=== PATIENT | female | born 1930 | race Caucasian/White ===

== ENCOUNTER 2017-12-11 17:09 | Observation (INO) | payer OTHER ==
[2017-12-11] MEDS ORDERED: ACETAMINOPHEN 325 MG TABLET PO PRN (18:05)
[2017-12-11] MEDS ORDERED: DIPHENHYDRAMINE 25 MG TAB/CAP PO PRN (18:05)
[2017-12-11] MEDS ORDERED: ALBUTEROL 2.5 MG/3 ML NEB SOL IH PRN (18:08)
[2017-12-11 18:20] LABS: Absolute Lymphocytes (CBC) 1.1 K/uL (0.7-4.9); Absolute Monocytes 0.6 K/uL (0.1-1.3); Absolute Neutrophil 6.2 K/uL (1.8-8.0); Basophils % 0.5 % (0-1.3); Eosinophils % 0.3 % (0-4.4); Hematocrit 50.3 % (36.0-45.0); Lymphocytes % 14.1 % (15.3-44.8); MCH 32.1 pg (27.0-35.0); MCV 98.9 fL (80-100); Monocytes % 7.6 % (3.3-12.3); RBC Red Blood Cell Count 5.09 M/uL (3.86-4.86)
[2017-12-11 18:24] LABS: Urine Appearance CLEAR; Urine Bilirubin NEGATIVE (NEG); Urine Blood NEGATIVE (NEG); Urine Color YELLOW; Urine Glucose NEGATIVE (NEG); Urine Protein 1+ (NEG); Urine Specific Gravity 1.015 (1.005-1.030); Urine Urobilinogen 0.2 mg/dL (0.2-1.0)
[2017-12-11 18:26] LABS: Urine Microscopic Reflex ORDER UMIC
[2017-12-11 19:24] LABS: Urine Bacteria <20 /HPF (<20); Urine Culture Reflex Order NOT NEEDED; Urine RBC <5 /HPF (NONE SEEN)
--- NOTE | 2017-12-11 19:26 | RAD REPORT ---
EXAM DESCRIPTION: CT - Chest For Pe Angio - 12/11/2017 7:01 pm CLINICAL HISTORY: Chest pain, shortness of breath COMPARISON: Chest films same date, CT study 2013 TECHNIQUE: Dynamically enhanced 3 mm thick images of the chest were obtained during administration o f approximately 150mL Isovue 370 IV contrast. Coronal and oblique reconstruction images were generate d and reviewed. Exam utilizes a protocol to evaluate the pulmonary arterial tree. All CT scans are performed using dose optimization technique as appropriate and may include automated exposure control or mA/KV adjustment according to patient size. FINDINGS: No pulmonary emboli are identified. The aorta as imaged shows no acute or suspicious finding. No pericardial thickening or effusion. Card iomegaly is present with pronounced right atrial enlargement. This has progressed substantially from 2013. Right atrial enlargement is present and there is left ventricular hypertrophy. No suspicious infiltrate or mass of the lung parenchyma. Patient has a prominent underlying COPD. Pul monary arteries are enlarged. No pleural effusion or pleural thickening. No mediastinal or hilar suspicious masses. No chest wall masses or abnormal axillary lymphadenopathy. IMPRESSION: No pulmonary emboli identified. Substantial cardiomegaly is present new from the 2013 study. Patient has a pronounced enlargement of the right atrium as well as right ventricular enlargement. Left ventricle wall hypertrophy is present with suspected ventricular outflow obstruction. Advanced COPD changes with no superimposed infiltrate or mass.
[2017-12-11 19:56] LABS: Potassium 4.6 mEq/L (3.6-5.0)
[2017-12-11 20:00] LABS: Protime INR 1.13
[2017-12-11 20:03] LABS: Albumin 3.6 g/dL (3.2-5.5); Bilirubin Direct 0.2 mg/dL (0-0.2); Bilirubin Total 0.8 mg/dL (0.3-1.2); Phosphorus 3.1 mg/dL (2.5-4.3)
[2017-12-11] MEDS: RIVAROXABAN 15 MG TABLET PO SCH (20:06)
[2017-12-11] MEDS: FUROSEMIDE 20 MG/ 2ML VIAL IV SCH (20:09)
--- NOTE | 2017-12-11 20:16 | P.HP ---
Certification for Inpatient Patient admitted to: Inpatient With expected LOS: >2 Midnights Practitioner: I am a practitioner with admitting privileges, knowledge of patient current condition, hospital course, and medical plan of care. Services: Services provided to patient in accordance with Admission requirements found in Title 42 Section 412.3 of the Code of Federal Regulations Patient History Date of Service: 12/11/17 Reason for admission: LOW OXYGEN, DYSPNEA, DVT POS History of Present Illness: MS. BATISTA IS HTN PATIENT COMES WITH WEEPING LEGS, EDEMA, DYSPNEA , OXYGEN SAT WAS 85% RA IN OFFICE. HER DVT STUDIES ARE POS FOR SUP FEMORAL VEIN THROMBUS. SHE IS ADMITTED DIRECLTY TO HOSPITAL. Allergies Penicillins Allergy (Unknown, Verified 11/02/17 12:32) unknown acetaminophen [From Vicodin] Allergy (Verified 11/02/17 12:32) Rash hydrocodone [From Vicodin] Allergy (Verified 11/02/17 12:32) Rash Sulfa (Sulfonamide Antibiotics) Allergy (Verified 11/02/17 12:32) Rash sulfamethoxazole [From Septra] Allergy (Verified 11/02/17 12:32) Rash trimethoprim [From Septra] Allergy (Verified 11/02/17 12:32) Rash Home Medications: Bimatoprost [Lumigan] 1 drop OPTH BEDTIME 09/11/14 Bisoprolol Fumarate [Bisoprolol Fumarate] 5 mg PO DAILY 09/11/14 Primidone [Primidone] 50 mg PO DAILY 09/11/14 Amlodipine [Norvasc] 10 mg PO DAILY 01/12/16 Nebivolol HCl [Bystolic] 10 mg PO DAILY 01/12/16 Acetaminophen [Tylenol] 325 mg PO DAILY 11/02/17 Atorvastatin Calcium 10 mg PO DAILY 11/02/17 Review of Systems 10-point ROS is otherwise unremarkable General: Weakness, Malaise Respiratory: Shortness of Breath Cardiovascular: Edema Physical Examination - Physical Exam General: Alert, Moderate distress HEENT: Atraumatic, PERRLA, Mucous membr. moist/pink, EOMI, Sclerae nonicteric Neck: Supple, 2+ carotid pulse no bruit, No LAD, Without JVD or thyroid abnormality Respiratory: Clear to auscultation bilaterally, Normal air movement Cardiovascular: Edema Gastrointestinal: Normal bowel sounds, No tenderness Musculoskeletal: No tenderness Integumentary: No rashes Neurological: Normal gait, Normal speech, Normal strength at 5/5 x4 extr, Normal tone, Normal affect Lymphatics: No axilla or inguinal lymphadenopathy - Studies Laboratory Data (last 24 hrs) 12/11/17 19:35: Sodium 135, Potassium 4.6, BUN 25 H, Creatinine 0.93, Glucose 108, Phosphorus 3.1, Total Bilirubin 0.8, AST 47 H, ALT 31, Alkaline Phosphatase 65 12/11/17 19:35: PT 13.4 H, INR 1.13, APTT 28.6 12/11/17 18:07: WBC 8.0, Hgb 16.3 H, Hct 50.3 H, Plt Count 135 L Assessment and Plan - Problems (Diagnosis) (1) DVT (deep venous thrombosis) Current Visit: Yes Status: Acute Plan: XARELTO 15 MG BID FOR 21 days followed by 20 mg daily six months about. (2) Edema Current Visit: Yes Status: Chronic Plan: diuresis check EF ro congestive cardiomyopathy. check for (3) Congestive heart failure with cardiomyopathy and cardiomegaly Current Visit: Yes Status: Acute Plan: as above lasix iv bid check k daily (4) Hypoxia Current Visit: Yes Status: Acute Plan: CT ANGIOGRAM IS NEGATIVE FOR PE BUT SHOWS CARDIOMEGALY AND POSSIBLE ECHO IN AM. - Advance Directives Does patient have a Living Will: Yes Does patient have a Durable POA for Healthcare: Yes
[2017-12-11 20:29] LABS: Magnesium 1.2 mg/dL (1.8-2.5)
[2017-12-11] MEDS: IPRATROPIUM BROM 0.5MG/2.5ML IH SCH (20:36)
[2017-12-11] MEDS: ALBUTEROL 2.5 MG/3 ML NEB SOL IH SCH (20:36)
[2017-12-11] MEDS ORDERED: PNEUMOCOCCAL VACCINE 0.5 ML IMVAC ONE (21:00)
[2017-12-11] MEDS ORDERED: Magnesium Sulfate 2gm IVPB 2 G/50 ML BAG IV ONE (21:22)
[2017-12-11] MEDS ORDERED: NA CHLORIDE 0.9% 100 ML ONE (21:59)
[2017-12-12] MEDS: IPRATROPIUM BROM 0.5MG/2.5ML IH SCH ×4 (01:16→19:49)
[2017-12-12] MEDS: ALBUTEROL 2.5 MG/3 ML NEB SOL IH SCH ×4 (01:16→19:49)
[2017-12-12 05:01] LABS: Magnesium 1.9 mg/dL (1.8-2.5); Potassium 3.8 mEq/L (3.6-5.0)
[2017-12-12 05:21] LABS: Absolute Lymphocytes (CBC) 1.3 K/uL (0.7-4.9); Absolute Monocytes 0.8 K/uL (0.1-1.3); Absolute Neutrophil 3.6 K/uL (1.8-8.0); Basophils % 0.6 % (0-1.3); Eosinophils % 1.2 % (0-4.4); Hematocrit 44.6 % (36.0-45.0); MCH 32.1 pg (27.0-35.0); MCV 98.5 fL (80-100); MPV 10.5 fL (7.6-11.3); RBC Red Blood Cell Count 4.53 M/uL (3.86-4.86)
[2017-12-12] MEDS ORDERED: POTASSIUM 25 MEQ EFFERV TAB PO ONE (05:59)
[2017-12-12] MEDS ORDERED: CHOLECALCIFEROL 50000 UNIT PO SCH (06:45)
[2017-12-12] MEDS: RIVAROXABAN 15 MG TABLET PO SCH ×2 (08:57→17:15)
[2017-12-12] MEDS: NEBIVOLOL HCL 20 MG TABLET PO SCH (08:57)
[2017-12-12] MEDS: ACETAMINOPHEN 325 MG TABLET PO SCH (08:59)
[2017-12-12] MEDS: PROPYLENE GLYCOL OP SCH (09:00)
[2017-12-12] MEDS: ATORVASTATIN 10 MG TAB PO SCH (09:00)
[2017-12-12] MEDS: HOME MED 1 EA UNK (Budesonide/Formoterol Fumarate [Symbicort 160-4.5 Mcg Inhaler] 2 PUFF) IH SCH ×2 (09:00→20:16)
[2017-12-12] MEDS: FUROSEMIDE 20 MG/ 2ML VIAL IV SCH ×2 (09:00→17:15)
[2017-12-12] MEDS: PEG OP SCH (09:00)
[2017-12-12] MEDS: HOME MED 1 EA UNK (Mirabegron [Myrbetriq] 25 MG) PO SCH (09:00)
[2017-12-12] MEDS: PRIMIDONE 50 MG TAB PO SCH ×3 (09:02→20:17)
--- NOTE | 2017-12-12 11:32 | ECHO ---
HEIGHT: 5 ft 7 in WEIGHT: 135 lb 0 oz DATE OF STUDY: 12/12/[address]: Torito Snyder MD 2-DIMENSIONAL: YES M.MODE: YES DOPPLER: YES COLOR FLOW: YES TDS: NO PORTABLE: NO DEFINITY: NO BUBBLE STUDY: NO DIAGNOSIS: PULMONARY EDEMA CARDIAC HISTORY: CATHERIZATION: NO SURGERY: NO PROSTHETIC VALVE: NO PACEMAKER: NO MEASUREMENTS (cm) DIASTOLIC (NORMALS) SYSTOLIC (NORMALS) IVSd 1.0 (0.6-1.2) LA Diam 4.1 (1.9-4.0) LVEF 71% LVIDd 4.7 (3.5-5.7) LVIDs 2.8 (2.0-3.5) %FS 40% LVPWd 1.0 (0.6-1.2) Ao Diam 2.9 (2.0-3.7) 2 DIMENSIONAL ASSESSMENT: RIGHT ATRIUM: DILATED LEFT ATRIUM: DILATED RIGHT VENTRICLE: NORMAL LEFT VENTRICLE: NORMAL TRICUSPID VALVE: NORMAL MITRAL VALVE: NORMAL PULMONIC VALVE: NORMAL AORTIC VALVE: NORMAL PERICARDIAL EFFUSION: NONE AORTIC ROOT: NORMAL LEFT VENTRICULAR WALL MOTION: DOPPLER/COLOR FLOW: COMMENTS: MILD TRICUSPID REGURGITATION. MILD PULOMARY HYPERTENSION. LEFT ATRIAL ENLARGEMENT. RIGHT ATRIAL ENLARGEMENT. NORMAL LEFT VENTRICULAR SIZE AND FUNCTION. NO EFFUSION. TECHNOLOGIST: Bryce LOGAN
--- NOTE | 2017-12-12 19:40 | P.PN ---
Subjective Date of Service: 12/12/17 Chief Complaint: LOW OXYGEN, DYSPNEA, DVT POS Subjective: Improving (SHE IS A LOT BETTER.) Review of Systems 10-point ROS is otherwise unremarkable General: Weakness, Malaise Physical Examination - Vital Signs Temperature: 97.7 F Blood Pressure: 170/69 Pulse: 62 Respirations: 16 Pulse Ox (%): 95 - Physical Exam General: Alert, Mild distress HEENT: Atraumatic, PERRLA, EOMI Neck: Supple, JVD not distended Respiratory: Clear to auscultation bilaterally, Normal air movement Cardiovascular: Regular rate/rhythm, Normal S1 S2, Edema (LOT LESSER.) Gastrointestinal: Normal bowel sounds, No tenderness Musculoskeletal: No tenderness Integumentary: Skin breakdown, Venous stasis ulcer (R LEG. ) Neurological: Normal speech, Normal tone, Normal affect Lymphatics: No axilla or inguinal lymphadenopathy - Studies Laboratory Data (last 24 hrs) 12/12/17 03:53: Sodium 140, Potassium 3.8, BUN 26 H, Creatinine 0.86, Glucose 85 , Magnesium 1.9 D 12/12/17 03:53: WBC 5.9 D, Hgb 14.5, Hct 44.6, Plt Count 106 L D 12/11/17 19:35: Sodium 135, Potassium 4.6, BUN 25 H, Creatinine 0.93, Glucose 108, Phosphorus 3.1, Magnesium 1.2 L* D, Total Bilirubin 0.8, AST 47 H, ALT 31, Alkaline Phosphatase 65 12/11/17 19:35: PT 13.4 H, INR 1.13, APTT 28.6 12/11/17 18:07: B-Natriuretic Peptide 904 H Medications List Reviewed: Yes Assessment And Plan - Current Problems (Diagnosis) (1) DVT (deep venous thrombosis) Current Visit: Yes Status: Acute Plan: XARELTO 15 MG BID FOR 21 days followed by 20 mg daily six months about. STABLE BETTER ON MEDS EXPLAINED THE PLAN- 6 MTHS OF XARELTO (2) Edema Current Visit: Yes Status: Chronic Plan: diuresis check EF ro congestive cardiomyopathy. check for ECHO NORMAL EF MILD TO MOD REGURGITATIONS NO CHANGES IN THERAPY (3) Congestive heart failure with cardiomyopathy and cardiomegaly Current Visit: Yes Status: Acute Plan: as above lasix iv bid check k daily (4) Hypoxia Current Visit: Yes Status: Acute Plan: CT ANGIOGRAM IS NEGATIVE FOR PE BUT SHOWS CARDIOMEGALY AND POSSIBLE ECHO IN AM. (5) HTN (hypertension) Current Visit: Yes Status: Acute Plan: DIFFICULTY TO CONTROL, HAS BEEN TO DR. BHARDWAJ. UNFORTUNATELY SULAR AND AMLODIPINE GIVE A LOT OF EDEMA TO HER. BYSTOLIC HAS NOT WORKED ENOUGH.
[2017-12-12] MEDS ORDERED: BIMATOPROST OPHTH DROPS/2.5 ML BTL OPTH SCH (21:00)
[2017-12-13] MEDS: ALBUTEROL 2.5 MG/3 ML NEB SOL IH SCH ×3 (02:07→14:00)
[2017-12-13] MEDS: IPRATROPIUM BROM 0.5MG/2.5ML IH SCH ×3 (02:07→14:00)
[2017-12-13 04:20] LABS: Absolute Lymphocytes (CBC) 1.4 K/uL (0.7-4.9); Absolute Monocytes 0.7 K/uL (0.1-1.3); Absolute Neutrophil 5.1 K/uL (1.8-8.0); Basophils % 0.8 % (0-1.3); Eosinophils % 2.3 % (0-4.4); Hematocrit 42.4 % (36.0-45.0); Lymphocytes % 18.4 % (15.3-44.8); MCH 32.6 pg (27.0-35.0); MCV 98.9 fL (80-100); MPV 9.8 fL (7.6-11.3); Monocytes % 9.5 % (3.3-12.3); RBC Red Blood Cell Count 4.28 M/uL (3.86-4.86)
[2017-12-13 04:23] LABS: Magnesium 1.6 mg/dL (1.8-2.5); Potassium 4.2 mEq/L (3.6-5.0)
[2017-12-13] MEDS ORDERED: MAGNESIUM SULFATE 1 gm IVPB 1 GM/100 ML BAG IV ONE (04:47)
[2017-12-13] MEDS: SPIRONOLACTONE 25 MG TABLET PO SCH ×2 (08:25→10:23)
[2017-12-13] MEDS: FUROSEMIDE 20 MG/ 2ML VIAL IV SCH (08:26)
[2017-12-13] MEDS: ACETAMINOPHEN 325 MG TABLET PO SCH (08:26)
[2017-12-13] MEDS: HOME MED 1 EA UNK (Mirabegron [Myrbetriq] 25 MG) PO SCH (08:27)
[2017-12-13] MEDS: ATORVASTATIN 10 MG TAB PO SCH (08:27)
[2017-12-13] MEDS: PROPYLENE GLYCOL OP SCH (08:27)
[2017-12-13] MEDS: RIVAROXABAN 15 MG TABLET PO SCH (08:27)
[2017-12-13] MEDS: PEG OP SCH (08:27)
[2017-12-13] MEDS: PRIMIDONE 50 MG TAB PO SCH (08:27)
[2017-12-13] MEDS: HOME MED 1 EA UNK (Budesonide/Formoterol Fumarate [Symbicort 160-4.5 Mcg Inhaler] 2 PUFF) IH SCH (08:28)
[2017-12-13] MEDS: NEBIVOLOL HCL 20 MG TABLET PO SCH (08:30)
[2017-12-13] MEDS ORDERED: LOSARTAN POTASSIUM 50 MG TABLET PO SCH (09:00)
--- NOTE | 2017-12-13 22:30 | P.DS ---
Admission Date: 12/11/17 Discharge Date: 12/13/17 Disposition: ROUTINE DISCHARGE Discharge Condition: FAIR Reason for Admission: LOW OXYGEN, DYSPNEA, DVT POS - Problems (1) DVT (deep venous thrombosis) Onset Date: 12/13/17 Status: Acute (2) Edema Onset Date: 12/13/17 Status: Chronic (3) Congestive heart failure with cardiomyopathy and cardiomegaly Onset Date: 12/13/17 Status: Acute (4) Hypoxia Onset Date: 12/13/17 Status: Acute (5) HTN (hypertension) Onset Date: 12/13/17 Status: Acute (6) COPD exacerbation Status: Chronic Brief History of Present Illness: MS. BATISTA IS HTN PATIENT COMES WITH WEEPING LEGS, EDEMA, DYSPNEA , OXYGEN SAT WAS 85% RA IN OFFICE. HER DVT STUDIES ARE POS FOR SUP FEMORAL VEIN THROMBUS. SHE IS ADMITTED DIRECLTY TO HOSPITAL. MS LEWIS HAS IMPROVED SIGNIFINCANTLY. SHE WILL GO HOME ON XARELTO, LASIX, SPIRONOLACTONE FOR EDEMA AND HTN CONTROL. NO SIGNS OF CHF. HOME HEALTH AND IF NEED OXYGEN. Vital Signs/Physical Exam: Temp Pulse Resp BP Pulse Ox 98.8 F 73 20 177/75 H 91 12/13/17 12:00 12/13/17 12:00 12/13/17 12:00 12/13/17 12:00 12/13/17 12:00 Laboratory Data at Discharge: WBC 7.4 K/uL (4.3-10.9) D 12/13/17 03:45 Hgb 13.9 g/dL (12.0-15.0) 12/13/17 03:45 Hct 42.4 % (36.0-45.0) 12/13/17 03:45 Plt Count 98 K/uL (152-406) L 12/13/17 03:45 PT 13.4 SECONDS (9.5-12.5) H 12/11/17 19:35 INR 1.13 12/11/17 19:35 APTT 28.6 SECONDS (24.3-36.9) 12/11/17 19:35 Sodium 139 mEq/L (135-145) 12/13/17 03:45 Potassium 4.2 mEq/L (3.6-5.0) 12/13/17 03:45 BUN 26 mg/dL (6-20) H 12/13/17 03:45 Creatinine 1.11 mg/dL (0.44-1.00) H 12/13/17 03:45 Glucose 104 mg/dL (65-120) 12/13/17 03:45 Phosphorus 3.1 mg/dL (2.5-4.3) 12/11/17 19:35 Magnesium 1.6 mg/dL (1.8-2.5) L 12/13/17 03:45 Total Bilirubin 0.8 mg/dL (0.3-1.2) 12/11/17 19:35 AST 47 IU/L (10-42) H 12/11/17 19:35 ALT 31 IU/L (10-60) 12/11/17 19:35 Alkaline Phosphatase 65 IU/L (42-121) 12/11/17 19:35 B-Natriuretic Peptide 904 pg/ml (<=100) H 12/11/17 18:07 Home Medications: Bimatoprost [Lumigan] 1 drop OPTH BEDTIME 09/11/14 Primidone 50 mg PO TID 09/11/14 Nebivolol HCl [Bystolic] 20 mg PO DAILY 01/12/16 Acetaminophen [Tylenol] 325 mg PO DAILY 11/02/17 Atorvastatin Calcium 10 mg PO DAILY 11/02/17 Budesonide/Formoterol Fumarate [Symbicort 160-4.5 Mcg Inhaler] 2 puff IH BID Calcium Citrate/Vitamin D3 [Citracal-Vit D3 200 mg-250 Tab] 1 each PO BID Cholecalciferol (Vitamin D3) [Vitamin D] 50,000 unit PO DIRECTED 12/12/17 Ipratropium/Albuterol Sulfate [Combivent Respimat Inhal [place]] 1 puff IH QID Loperamide [Imodium] 4 mg PO Q4HP PRN 12/12/17 Mirabegron [Myrbetriq] 25 mg PO DAILY 12/12/17 Propylene Glycol/Peg 400 [Systane Ultra 0.3-0.4% Eye Drp] 4 gtt OP DAILY Zoledronic Acid/Mannitol&Water [Zoledronic Acid 5 mg/100 ml] 5 mg IV DIRECTED 12/12/17 Acetaminophen [Tylenol*] 650 mg PO Q6HP PRN tab 12/13/17 Furosemide 40 mg PO DAILY #90 tablet 12/13/17 Hydralazine HCl [Apresoline] 50 mg PO BID #60 tablet 12/13/17 Losartan Potassium [Cozaar*] 100 mg PO DAILY #90 tablet 12/13/17 Rivaroxaban [Xarelto*] 15 mg PO BIDWM #26 tablet 12/13/17 Spironolactone [Aldactone*] 50 mg PO DAILY #90 tab 12/13/17 New Medications: Furosemide 40 mg PO DAILY #90 tablet Hydralazine HCl [Apresoline] 50 mg PO BID #60 tablet Losartan Potassium [Cozaar*] 100 mg PO DAILY #90 tablet Rivaroxaban [Xarelto*] 15 mg PO BIDWM #26 tablet Spironolactone [Aldactone*] 50 mg PO DAILY #90 tab Patient Discharge Instructions: STOP AMLODIPINE. STOP SPIRONOLACTONE HCTZ
== END 2017-12-13 14:32 | disposition home health service (06) ==
LOC: 4TH 17:27 → INTOOBSV 12-13 07:40 → OBSVTOIN 12-13 07:40
PROVIDERS: ADMIT Internal Medicine; ATTEND Internal Medicine
DX: I82.419 Acute embolism and thrombosis of unspecified femoral vein (principal); E78.5 Hyperlipidemia, unspecified; I48.91 Unspecified atrial fibrillation; I10 Essential (primary) hypertension; J44.9 Chronic obstructive pulmonary disease, unspecified; I50.9 Heart failure, unspecified; R09.02 Hypoxemia; I42.9 Cardiomyopathy, unspecified; I51.7 Cardiomegaly; Z88.2 Allergy status to sulfonamides; Z88.0 Allergy status to penicillin
CPT/HCPCS: 36415 ×2; 71275; 80048 ×3; 80076; 82306; 82607; 83735 ×3; 83880; 84100; 84443; 85025 ×3; 85379; 85610; 85730; 87077; 87086; 87088; 87186; 93306; 94640; 97163; G0378; G0379; J1940 ×4; J3475 ×2; Q9967; 71046; 81003; 81015; 93970

== ENCOUNTER 2017-12-25 23:31 | Emergency (ER) | payer OTHER ==
[2017-12-26] MEDS ORDERED: ENALAPRILAT 1.25 MG/ML VIAL IV ONE (00:04)
[2017-12-26 00:38] LABS: Absolute Lymphocytes (CBC) 0.8 K/uL (0.7-4.9); Absolute Monocytes 0.6 K/uL (0.1-1.3); Absolute Neutrophil 4.8 K/uL (1.8-8.0); Basophils % 0.5 % (0-1.3); Eosinophils % 0.3 % (0-4.4); Hematocrit 46.3 % (36.0-45.0); Lymphocytes % 12.1 % (15.3-44.8); MCH 32.2 pg (27.0-35.0); MPV 11.1 fL (7.6-11.3); Monocytes % 9.9 % (3.3-12.3); RBC Red Blood Cell Count 4.67 M/uL (3.86-4.86)
[2017-12-26 00:39] LABS: Protime INR 2.09
[2017-12-26 01:29] LABS: BUN Blood Urea Nitrogen 76 mg/dL (6-20); Bicarbonate 37 mEq/L (21-31); Digoxin Level < 0.1 ng/ml (1.0-2.0); Glucose Level 139 mg/dL (65-120); Magnesium 1.9 mg/dL (1.8-2.5); Potassium 4.5 mEq/L (3.6-5.0); Sodium Level 137 mEq/L (135-145)
[2017-12-26] MEDS ORDERED: NA CHLORIDE 0.9% 500 ML ONE (01:46)
--- NOTE | 2017-12-26 02:22 | ER ---
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 No LOC, no N/V, but she has general body weakness. On oxygen therapy \T\ 2 l/min at home. Transition of care: patient was not received from another setting of care. Onset of symptoms was December 25, 2017. Initial Sepsis Screen: Does the patient meet any 2 criteria? No. Patient's initial sepsis screen is negative. Does the patient have a suspected source of infection? No. Patient's initial sepsis screen is negative. Care prior to arrival: oxygen. Mechanism of Injury: Fall from standing position. 23:39 Method Of Arrival: EMS: [facility] mg2 23:39 Acuity: SRIDEVI 3 mg2 12/26 00:22 Presenting complaint:. mg2 Historical: - Allergies: 00:25 PENICILLINS; mg2 00:25 Sulfa (Sulfonamide Antibiotics); mg2 00:25 ACETAMINOPHEN; mg2 00:25 Trimethoprim; mg2 00:25 Tramadol HCl; mg2 00:25 sulfamethoxazole-trimethoprim; mg2 00:25 Hydrocodone-Acetaminophen; mg2 - PMHx: 12/25 23:44 CHF; DVT; Hypertension; mg2 - Immunization history:: Flu vaccine is up to date. - Social history:: Smoking status: Patient/guardian denies using alcohol, tobacco products. Screenin:48 Abuse screen: Denies threats or abuse. Denies injuries from another. Nutritional mg2 screening: No deficits noted. Tuberculosis screening: No symptoms or risk factors identified. Fall Risk Assessment: 23:46 General: Appears in no apparent distress. comfortable, Behavior is calm, cooperative, mg2 quiet. Pain: Complains of pain in buttocks Pain currently is 2 out of 10 on a pain scale. Quality of pain is described as aching, Pain began suddenly, Is intermittent, Alleviated by rest, repositioning, relaxation, Aggravated by repositioning. Neuro: Level of Consciousness is awake, alert, obeys commands, Oriented to person, place, time. Cardiovascular: Capillary refill < 3 seconds Patient's skin is warm and dry. Respiratory: Airway is patent Respiratory effort is even, unlabored, Respiratory pattern is regular, symmetrical. GI: No signs and/or symptoms were reported involving the gastrointestinal system. : No signs and/or symptoms were reported regarding the genitourinary system. EENT: No signs and/or symptoms were reported regarding the EENT system. Derm: Skin is intact, Skin is pink, warm \T\ dry. normal. Musculoskeletal: Circulation, motion, and sensation intact. 12/26 01:36 Reassessment: Patient appears in no apparent distress at this time. Patient and/or aa1 family updated on plan of care and expected duration. Pain level reassessed. Patient is alert, oriented x 3, equal unlabored respirations, skin warm/dry/pink. Awaiting lab results. Vital Signs: 12/25 23:45 BP 189 / 93; Pulse 70; Resp 20; Pulse Ox 90% on 4 lpm NC; Weight 58.06 kg; Height 5 ft. mg2 8 in. (172.72 cm); Pain 2/10; 12/26 00:28 BP 182 / 66; Pulse 67; Resp 20; Temp 98.7; Pulse Ox 100% on 2 lpm NC; aa1 01:36 BP 152 / 59; Pulse 62; Resp 18; Pulse Ox 100% on R/A; Pain 0/10; aa1 02:18 BP 146 / 65; Pulse 60; Resp 18; Pulse Ox 100% on NC; mt 12/25 23:45 Body Mass Index 19.46 (58.06 kg, 172.72 cm) mg2 ED Course: 12/25 23:39 Patient arrived in ED. ak1 23:39 Ricky Melendez, DALTON is Primary Nurse. mg2 23:39 Gil Montes PA is PHCP. jr8 23:39 Felton Veliz MD is Attending Physician. jr8 23:43 Triage completed. mg2 23:45 Arm band placed on Patient placed in the treatment room, on a stretcher, on oxygen, on mg2 pulse oximetry. 23:49 Patient has correct armband on for positive identification. Bed in low position. Call mg2 light in reach. Side rails up X2. Noise minimized. Warm blanket given. 12/26 00:19 X-ray completed. Portable x-ray completed in exam room. Patient tolerated procedure kw well. 00:21 XRAY Chest (1 view) In Process Unspecified. EDMS 00:26 Inserted saline lock: 20 gauge 24 gauge forearm, using aseptic technique. Blood mg2 collected. 02:19 Torito Snyder MD is Referral Physician. jr8 02:38 No provider procedures requiring assistance completed. IV discontinued, intact, ak1 bleeding controlled, No redness/swelling at site. Pressure dressing applied. Administered Medications: 00:26 Drug: Enalaprilat 1.25 mg Route: IV; Rate: calculated rate; Site: right forearm; mg2 01:55 Follow up: Response: No adverse reaction; Blood pressure is lowered mg2 02:39 Follow up: IV Status: Completed infusion ak1 01:46 Drug: NS 0.9% 500 ml Route: IV; Rate: bolus; Site: right forearm; aa1 01:55 Follow up: Response: No adverse reaction; IV Status: Completed infusion mg2 02:38 Follow up: IV Status: Completed infusion ak1 Outcome: 02:22 Discharge ordered by . jr8 02:38 Discharged to home via wheelchair, with family. ak1 02:38 Condition: stable 02:38 Discharge instructions given to patient, family, Instructed on discharge instructions, follow up and referral plans. Demonstrated understanding of instructions, follow-up care. 02:46 Patient left the ED. mg2 Addendum: 12/27/2017 09:24 Addendum: Radiology Result: Contacted pt per JUSTIN Burrows at [phone] to instruct a a5 pt to follow-up with PCP due to possible developing Pneumonia per X-ray. Signatures: Dispatcher [employer] [facility] Brianda Nur RN RN aa1 Caitlin Crenshaw RN RN aa5 Ines Whitmore Josh, PA PA jr8 Katie Benítez RN RN ak1 Herminia Garsia mt, Michele, RN RN mg2 Corrections: (The following items were deleted from the chart) 12/26 02:18 02:18 BP 146 / 65; Pulse 60bpm; Resp 18bpm; Pulse Ox 100% RA; mt mt
--- NOTE | 2017-12-26 02:23 | EDPHYS ---
Physician Documentation [facility] Name: Kayla Rodriguez Age: 87 yrs Sex: Female : 1930 Arrival Date: 12/25/2017 Time: 23:39 Bed 7 Private MD: ED Physician Felton Veliz HPI: 12/25 23:57 This 87 yrs old Female presents to ER via EMS with complaints of fall. jr8 23:57 Patient stated that while walking inside her house felt that both her legs locked up on jr8 her. Stated that she lowered herself to the ground and then called her son. Son stated that he was having trouble getting her up. EMS called at that time. Initially was going to be lift assist but patient stated that she wanted to be evaluated for weakness. Recent diagnosis of CHF and left lower extremity venous thrombosis. Was sent home on new medications and home oxygen . Severity of symptoms: At their worst the symptoms were mild in the emergency department the symptoms have improved. The patient has not experienced similar symptoms in the past. The patient has been recently seen by a physician:. Historical: - Allergies: 12/26 00:25 PENICILLINS; mg2 00:25 Sulfa (Sulfonamide Antibiotics); mg2 00:25 ACETAMINOPHEN; mg2 00:25 Trimethoprim; mg2 00:25 Tramadol HCl; mg2 00:25 sulfamethoxazole-trimethoprim; mg2 00:25 Hydrocodone-Acetaminophen; mg2 - PMHx: 12/25 23:44 CHF; DVT; Hypertension; mg2 - Immunization history:: Flu vaccine is up to date. - Social history:: Smoking status: Patient/guardian denies using alcohol, tobacco products. ROS: 23:57 Eyes: Negative for injury, pain, redness, and discharge, ENT: Negative for injury, jr8 pain, and discharge, Neck: Negative for injury, pain, and swelling, Cardiovascular: Negative for chest pain, palpitations, and edema, Respiratory: Negative for shortness of breath, cough, wheezing, and pleuritic chest pain, Abdomen/GI: Negative for abdominal pain, nausea, vomiting, diarrhea, and constipation, Back: Negative for injury and pain, MS/Extremity: Negative for injury and deformity, Skin: Negative for injury, rash, and discoloration, Neuro: Negative for headache, weakness, numbness, tingling, and seizure. Exam: 23:57 Head/Face: Normocephalic, atraumatic. Eyes: Pupils equal round and reactive to light, jr8 extra-ocular motions intact. Lids and lashes normal. Conjunctiva and sclera are non-icteric and not injected. Cornea within normal limits. Periorbital areas with no swelling, redness, or edema. ENT: Nares patent. No nasal discharge, no septal abnormalities noted. Tympanic membranes are normal and external auditory canals are clear. Oropharynx with no redness, swelling, or masses, exudates, or evidence of obstruction, uvula midline. Mucous membranes moist. Neck: Trachea midline, no thyromegaly or masses palpated, and no cervical lymphadenopathy. Supple, full range of motion without nuchal rigidity, or vertebral point tenderness. No Meningismus. Chest/axilla: Normal chest wall appearance and motion. Nontender with no deformity. No lesions are appreciated. Respiratory: Lungs have equal breath sounds bilaterally, clear to auscultation and percussion. No rales, rhonchi or wheezes noted. No increased work of breathing, no retractions or nasal flaring. Abdomen/GI: Soft, non-tender, with normal bowel sounds. No distension or tympany. No guarding or rebound. No evidence of tenderness throughout. Back: No spinal tenderness. No costovertebral tenderness. Full range of motion. Skin: Warm, dry with normal turgor. Normal color with no rashes, no lesions, and no evidence of cellulitis. MS/ Extremity: Pulses equal, no cyanosis. Neurovascular intact. Full, normal range of motion. Neuro: Awake and alert, GCS 15, oriented to person, place, time, and situation. Cranial nerves II-XII grossly intact. Motor strength 5/5 in all extremities. Sensory grossly intact. Cerebellar exam normal. Normal gait. 23:57 Cardiovascular: Rate: normal, Rhythm: regular, Pulses: Pulses are 2+ in right radial artery and left radial artery. Heart sounds: normal, normal S1and S2, no S3 or S4, no murmur, no rub, no gallop, Edema: 2+ edema to level of left midcalf, left ankle, left foot, right midcalf, right ankle and right foot. Vital Signs: 23:45 BP 189 / 93; Pulse 70; Resp 20; Pulse Ox 90% on 4 lpm NC; Weight 58.06 kg; Height 5 ft. mg2 8 in. (172.72 cm); Pain 2/10; 12/26 00:28 BP 182 / 66; Pulse 67; Resp 20; Temp 98.7; Pulse Ox 100% on 2 lpm NC; aa1 01:36 BP 152 / 59; Pulse 62; Resp 18; Pulse Ox 100% on R/A; Pain 0/10; aa1 02:18 BP 146 / 65; Pulse 60; Resp 18; Pulse Ox 100% on NC; mt 12/25 23:45 Body Mass Index 19.46 (58.06 kg, 172.72 cm) mg2 MDM: 12/25 23:39 Patient medically screened. 8 12/26 02:17 Data reviewed: vital signs, nurses notes, lab test result(s), EKG, radiologic studies, jr8 plain films, and as a result, I will discharge patient. Data interpreted: Pulse oximetry: on room air is 100 %. Interpretation: normal. Counseling: I had a detailed discussion with the patient and/or guardian regarding: the historical points, exam findings, and any diagnostic results supporting the discharge/admit diagnosis, lab results, radiology results, the need for outpatient follow up, a family practitioner, to return to the emergency department if symptoms worsen or persist or if there are any questions or concerns that arise at home. ED course: Patient has remained stable while in ED. Discussed with patient and son that her renal function has worsened since the recent last visit. That she needs to call PCP tomorrow and have him look at results and possibly adjust medications if needed. Family and patient understood and would f/u and call tomorrow . 12/25 23:54 Order name: Basic Metabolic Panel; Complete Time: 01:30 12/25 23:54 Order name: CBC with Diff; Complete Time: 00:48 12/25 23:54 Order name: Magnesium; Complete Time: 01:30 12/25 23:54 Order name: PT-INR; Complete Time: 00:48 12/25 23:54 Order name: XRAY Chest (1 view) 12/25 23:55 Order name: Digoxin; Complete Time: 01:30 12/25 23:54 Order name: EKG; Complete Time: 23:54 12/25 23:54 Order name: Cardiac monitoring; Complete Time: 00:27 8 05/07 23:54 Order name: EKG - Nurse/Tech; Complete Time: 00:12/25 23:54 Order name: IV Saline Lock; Complete Time: 00:12/25 23:54 Order name: Labs collected and sent; Complete Time: 00:12/25 23:54 Order name: O2 Per Protocol; Complete Time: :59 12/25 23:54 Order name: O2 Sat Monitoring; Complete Time: : Administered Medications: 00:26 Drug: Enalaprilat 1.25 mg Route: IV; Rate: calculated rate; Site: right forearm; mg2 01:55 Follow up: Response: No adverse reaction; Blood pressure is lowered mg2 02:39 Follow up: IV Status: Completed infusion ak1 01:46 Drug: NS 0.9% 500 ml Route: IV; Rate: bolus; Site: right forearm; aa1 01:55 Follow up: Response: No adverse reaction; IV Status: Completed infusion mg2 02:38 Follow up: IV Status: Completed infusion ak1 Disposition: 08:04 Co-signature as Attending Physician, Felton Veliz MD I agree with the assessment and bette plan of care. Disposition: 12/26/17 02:22 Discharged to Home. Impression: Weakness, Dehydration. - Condition is Stable. - Discharge Instructions: Dehydration, Adult, Weakness. - Medication Reconciliation Form, Thank You Letter, Antibiotic Education, Prescription Opioid Use form. - Follow up: Torito Snyder MD; When: Tomorrow; Reason: Recheck today's complaints, Continuance of care, Re-evaluation by your physician. - Problem is new. - Symptoms have improved. Signatures: Dispatcher [employer] EDBrianda Martins RN RN aa1 Felton Veliz MD MD cha Roszak, Josh, PA PA jr8 Ricky Melendez RN RN mg2 Katie Benítez RN ak1 Corrections: (The following items were deleted from the chart) 00:03 12/25 23:57 Patient stated that while walking inside her house felt that both her legs jr8 locked up on her. Stated that she lowered herself to the ground and then called her son. Son stated that he was having trouble getting her up. EMS called at that time. Initially was going to be lift assist but patient stated that she wanted to be evaluated for weakness. Recent diagnosis of CHF. Was sent home on new medications and home oxygen . jr8 12/26 02:38 12/25 23:54 Urine Dipstick-Ancillary ordered. jr8 ak1 12/26 02:46 02:22 12/26/2017 02:22 Discharged to Home. Impression: Weakness; Dehydration. Condition mg2 is Stable. Forms are Medication Reconciliation Form, Thank You Letter, Antibiotic Education, Prescription Opioid Use. Follow up: Torito Snyder; When: Tomorrow; Reason: Recheck today's complaints, Continuance of care, Re-evaluation by your physician. Problem is new. Symptoms have improved. jr8
--- NOTE | 2017-12-26 06:39 | EKG ---
Test Date: 2017-12-26 Test Time: 00:18:19 Care Professionals: JESSA MEASUREMENT RESULTS: Intervals: Rate: 69 CO: 180 QRSD: 134 QT: 420 QTc: 450 [place]: P: 41 CO: 180 QRS: 82 T: -52 INTERPRETIVE STATEMENTS: Normal sinus rhythm Biatrial enlargement Right bundle branch block T wave abnormality, consider inferolateral ischemia Abnormal ECG Compared to ECG 03/09/2005 15:45:00 Atrial abnormality now present Right bundle-branch block now present T-wave abnormality now present Incomplete right bundle-branch block no longer present Electronically Signed On 12-26-17 06:38:57 CDT by Gautam Pineda
--- NOTE | 2017-12-26 08:46 | RAD REPORT ---
EXAM DESCRIPTION: RAD - Chest Single View - 12/26/2017 12:22 am CLINICAL HISTORY: Shortness of breath COMPARISON: 12/11/2017 FINDINGS: Portable technique limits examination quality. The lungs are emphysematous with ill-defined opacity in the right lung base, more prominent than on c omparative study. This may represent a small area of developing pneumonia or aspiration. The heart is prominent in size with tortuous thoracic aorta. No displaced fractures. IMPRESSION: COPD is present with ill-defined opacity in the right lung base laterally, likely an are a of pneumonia or aspiration.
== END 2017-12-26 02:46 | disposition home or self-care (01) ==
LOC: ER 23:31
DX: E86.0 Dehydration (principal); I10 Essential (primary) hypertension; I50.9 Heart failure, unspecified; Z88.0 Allergy status to penicillin; Z88.2 Allergy status to sulfonamides; Z88.5 Allergy status to narcotic agent; Z88.6 Allergy status to analgesic agent; Z88.8 Allergy status to other drugs, medicaments and biological substances
CPT/HCPCS: 36415; 71045; 80048; 80162; 83735; 85025; 85610; 93005; 96365; 96366; 99284